=== PATIENT | female | born 1965 | race Asian ===

== ENCOUNTER 2019-09-25 07:49 | Outpatient (CLI) | payer MEDICAID | END 2019-09-25 23:59 | disposition home or self-care (01) | LOC: WOUND 07:49 | PROVIDERS: ATTEND Internal Medicine | DX: Z43.3 Encounter for attention to colostomy (principal); E78.5 Hyperlipidemia, unspecified; I10 Essential (primary) hypertension; B19.20 Unspecified viral hepatitis C without hepatic coma; F32.9 Major depressive disorder, single episode, unspecified | CPT/HCPCS: 99204 ==

== ENCOUNTER 2020-01-03 13:58 | Emergency (ER) | payer MEDICAID ==
[~2020-01-03] VITALS: Ht 162.6 cm; Wt 41.7 kg
[2020-01-03 14:07] VITALS: BP 157/101
== END 2020-01-03 15:03 | disposition home or self-care (01) ==
LOC: ED 14:41
DX: L03.213 Periorbital cellulitis (principal)
CPT/HCPCS: 99283

== ENCOUNTER 2020-02-07 14:26 | Emergency (ER) | payer MEDICAID ==
[~2020-02-07] VITALS: Ht 162.6 cm; Wt 42.2 kg
[2020-02-07 14:40] VITALS: BP 158/98
--- NOTE | 2020-02-07 15:28 | NUR ---
"FOR 1 WEEK NOW FEVER, COUGHING MORE AND MORE, SHORT OF BREATH SOMETIMES, RUNNY NOSE, BODY ACHES, MY THROAT A LITTLE SORE, MY HEAD HURTS, I HAVE NO APPETITE, I'M TIRED, TAKING IBUPROFEN AND THROWING IT RIGHT UP." DENIES CP. EKG COMPLETED.URINE SENT TO LAB.
[2020-02-07 15:55] LABS: MICROSCOPIC INDICATED
[2020-02-07 16:05] LABS: ALBUMIN 3.4 g/dL (3.4-5.0); ANION GAP 6 mmol/L (5-15); CALCIUM 8.7 mg/dL (8.5-10.1); CHLORIDE 102 mmol/L (98-107)
[2020-02-07 16:06] LABS: CREATININE 0.56 mg/dL (0.55-1.02)
[2020-02-07 16:18] LABS: BASOPHILS % (AUTO) 0 % (0-1); EOSINOPHILS % (AUTO) 0 % (1-7); LYMPHOCYTES % (AUTO) 22 % (22-44); MEAN CORPUSCULAR HEMOGLOBIN 28.9 pg (27.0-34.8); MEAN CORPUSCULAR HGB CONC 33.2 g/dL (32.4-35.8); MEAN PLATELET VOLUME 8.6 fL (7.4-10.4); MONOCYTES % (AUTO) 9 % (2-9); NEUTROPHILS % (AUTO) 68 % (42-75); PLATELET COUNT 236 x10^3/uL (130-400); RED BLOOD COUNT 4.84 x10^6/uL (3.82-5.3); RED CELL DISTRIBUTION WIDTH 14.1 % (9.6-15.2)
[2020-02-07 16:28] LABS: MD NO
== END 2020-02-07 18:24 | disposition home or self-care (01) ==
LOC: ED 15:11
DX: U07.1 COVID-19 (principal); R05 Cough; R50.9 Fever, unspecified; J02.9 Acute pharyngitis, unspecified; R94.31 Abnormal electrocardiogram [ECG] [EKG]; R51.9 Headache, unspecified
CPT/HCPCS: 36415; 71045; 80048; 81001; 82040; 85025; 87635; 93005; 99285

== ENCOUNTER 2020-11-04 13:58 | Outpatient (CLI) | payer MEDICAID | END 2020-11-04 23:59 | disposition home or self-care (01) | LOC: WOUND 13:58 | PROVIDERS: ATTEND Internal Medicine | DX: Z43.3 Encounter for attention to colostomy (principal); R53.82 Chronic fatigue, unspecified; E78.5 Hyperlipidemia, unspecified; I10 Essential (primary) hypertension; F32.9 Major depressive disorder, single episode, unspecified; Z86.16 Personal history of COVID-19 | CPT/HCPCS: 99213 ==